=== PATIENT | male | born 1930 | race Caucasian/White ===

== ENCOUNTER 2018-01-16 15:50 | Inpatient (IN) | payer MEDICARE, OTHER, MEDICAID ==
[2018-01-16 17:31] LABS: ADD MAN DIFF? NO
[2018-01-16 17:34] LABS: WHITE BLOOD COUNT 4.2 10^3/ul (4.8-10.8)
[2018-01-16 17:34] LABS: BASOPHILS % 0.7 % (0.0-2.0); EOSINOPHILS # 0.1 10^3/ul (0.0-0.5); EOSINOPHILS % 2.2 % (0.0-7.0); HEMATOCRIT 41.5 % (42.0-52.0); HEMOGLOBIN 13.9 g/dl (14.0-18.0); LYMPHOCYTES # 1.2 10^3/ul (0.8-2.9); LYMPHOCYTES % 27.8 % (15.0-51.0); MEAN CORPUSCULAR HEMOGLOBIN 28.6 pg (29.0-33.0); MEAN CORPUSCULAR HGB CONC 33.5 g/dl (32.0-37.0); MEAN CORPUSCULAR VOLUME 85.4 fl (82.0-101.0); MEAN PLATELET VOLUME 8.5 fl (7.4-10.4); MONOCYTE # 0.3 10^3/ul (0.3-0.9); MONOCYTES % 7.2 % (0.0-11.0); NEUTROPHIL # 2.6 10^3/ul (1.6-7.5); NEUTROPHILS % 61.6 % (39.0-77.0); PLATELET COUNT 171 10^3/UL (140-415); RED BLOOD COUNT 4.86 10^6/ul (4.70-6.10); RED CELL DISTRIBUTION WIDTH 13.9 % (11.5-14.5)
[2018-01-16 18:00] LABS: ALANINE AMINOTRANSFERASE 35 IU/L (13-69); ALBUMIN 4.4 g/dl (3.3-4.9); ALBUMIN/GLOBULIN RATIO 1.41; ALKALINE PHOSPHATASE 92 IU/L (42-121); ANION GAP 14 (8-16); ASPARTATE AMINO TRANSFERASE 27 IU/L (15-46); BILIRUBIN,INDIRECT 0.6 mg/dl (0-1.1); BILIRUBIN,TOTAL 0.6 mg/dl (0.2-1.3); BLOOD UREA NITROGEN 25 mg/dl (7-20); CALCIUM 9.1 mg/dl (8.4-10.2); CARBON DIOXIDE 25 mmol/L (21-31); CHLORIDE 105 mmol/L (97-110); CREATININE 1.04 mg/dl (0.61-1.24); GLUCOSE 98 mg/dl (70-220); LIPASE 47 U/L (23-300); POTASSIUM 4.3 mmol/L (3.5-5.1); SODIUM 140 mmol/L (135-144); TOTAL PROTEIN 7.5 g/dl (6.1-8.1)
[2018-01-16 18:15] LABS: ADD UMIC YES; UR ASCORBIC ACID NEGATIVE (NEGATIVE); UR BACTERIA FEW /HPF (NONE SEEN); UR BILIRUBIN (Dip) NEGATIVE (NEGATIVE); UR BLOOD (Dip) 1+ mg/dL (NEGATIVE); UR CLARITY CLEAR (CLEAR); UR COLOR YELLOW (YELLOW); UR GLUCOSE (Dip) NEGATIVE (NEGATIVE); UR KETONES (Dip) 2+ mg/dL (NEGATIVE); UR LEUKOCYTE ESTERASE (Dip) NEGATIVE Leu/ul (NEGATIVE); UR MUCUS MODERATE /HPF (NONE SEEN); UR NITRITE (Dip) NEGATIVE (NEGATIVE); UR RBC 4 /HPF (0-5); UR SPECIFIC GRAVITY (Dip) 1.025 (1.003-1.030); UR TOTAL PROTEIN (Dip) 1+ mg/dl (NEGATIVE); UR UROBILINOGEN (Dip) NEGATIVE (NEGATIVE); UR WBC 3 /HPF (0-5)
[2018-01-16] MEDS: SOD CHLORIDE 0.9% 100 ML (18:53)
[2018-01-16] MEDS: IOHEXOL 300MG/ML 150 ML BTL (19:23)
[2018-01-16] MEDS: SOD CHLORIDE 0.9% 1,000 ML IV (20:25)
[2018-01-16] MEDS ORDERED: ONDANSETRON 4 MG INJ IV (20:30)
[2018-01-16] MEDS ORDERED: ACETAMINOPHEN 325 MG TAB PO ×2 (20:30→22:00)
[2018-01-16] MEDS ORDERED: NACL 0.9% 3 ML SYG IV (22:00)
[2018-01-16] MEDS ORDERED: MAGNESIUM HYDROXIDE 30ML CUP PO (22:00)
[2018-01-16] MEDS ORDERED: BISACODYL (EC) 5 MG TAB PO (22:00)
[2018-01-16] MEDS ORDERED: DOCUSATE SODIUM 100 MG CAP PO (22:00)
[2018-01-16] MEDS ORDERED: ACETAMINOPHEN 650 MG SUPP PR (22:00)
[2018-01-16] MEDS: DEXTROSE 5%-0.45% NACL 1,000 ML IV (23:31)
[2018-01-17] MEDS: PANTOPRAZOLE 40 MG INJ IV (06:18)
[2018-01-17 08:36] LABS: HEMOGLOBIN A1C 5.7 % (0-5.9)
[2018-01-17] MEDS: GABAPENTIN 100 MG CAP PO (08:52)
[2018-01-17] MEDS: EZETIMIBE 10 MG TAB PO (08:53)
[2018-01-17] MEDS: SUCRALFATE 1 GM TAB PO ×4 (08:53→20:31)
[2018-01-17] MEDS: LOSARTAN 50 MG TAB PO ×2 (08:54→20:32)
[2018-01-17] MEDS: DEXTROSE 5%-0.45% NACL 1,000 ML IV ×2 (12:02→13:22)
[2018-01-17] MEDS: ROPINIROLE 0.25 MG TAB PO (20:31)
[2018-01-18] MEDS: DEXTROSE 5%-0.45% NACL 1,000 ML IV ×3 (02:20→16:38)
[2018-01-18] MEDS: PANTOPRAZOLE 40 MG INJ IV (06:00)
[2018-01-18] MEDS: SUCRALFATE 1 GM TAB PO ×4 (08:00→20:32)
[2018-01-18] MEDS: GABAPENTIN 100 MG CAP PO (08:08)
[2018-01-18] MEDS: LOSARTAN 50 MG TAB PO ×2 (08:08→20:32)
[2018-01-18] MEDS: EZETIMIBE 10 MG TAB PO (08:09)
[2018-01-18] MEDS: PROPOFOL 20 ML (18:13)
[2018-01-18] MEDS: QUETIAPINE 25 MG TAB PO (20:32)
[2018-01-18] MEDS: ROPINIROLE 0.25 MG TAB PO (20:32)
[2018-01-18] MEDS: ONDANSETRON 4 MG INJ IV (20:36)
[2018-01-19] MEDS: DEXTROSE 5%-0.45% NACL 1,000 ML IV ×2 (01:32→18:34)
[2018-01-19] MEDS: PANTOPRAZOLE 40 MG INJ IV (06:09)
[2018-01-19] MEDS: LOSARTAN 50 MG TAB PO ×2 (08:39→20:39)
[2018-01-19] MEDS: GABAPENTIN 100 MG CAP PO (08:39)
[2018-01-19] MEDS: SUCRALFATE 1 GM TAB PO ×4 (08:39→20:38)
[2018-01-19] MEDS: EZETIMIBE 10 MG TAB PO (08:39)
[2018-01-19] MEDS: ROPINIROLE 0.25 MG TAB PO (20:38)
[2018-01-19] MEDS: QUETIAPINE 25 MG TAB PO (20:38)
[2018-01-20] MEDS: PANTOPRAZOLE 40 MG INJ IV (05:54)
[2018-01-20] MEDS: LOSARTAN 50 MG TAB PO ×2 (08:16→21:05)
[2018-01-20] MEDS: EZETIMIBE 10 MG TAB PO (08:16)
[2018-01-20] MEDS: GABAPENTIN 100 MG CAP PO (08:16)
[2018-01-20] MEDS: SUCRALFATE 1 GM TAB PO ×4 (08:16→21:05)
[2018-01-20] MEDS: ROPINIROLE 0.25 MG TAB PO (21:05)
[2018-01-20] MEDS: QUETIAPINE 25 MG TAB PO (21:05)
[2018-01-21] MEDS: PANTOPRAZOLE 40 MG INJ IV (05:53)
[2018-01-21] MEDS: LOSARTAN 50 MG TAB PO ×2 (08:25→21:12)
[2018-01-21] MEDS: EZETIMIBE 10 MG TAB PO (08:25)
[2018-01-21] MEDS: SUCRALFATE 1 GM TAB PO ×4 (08:25→21:13)
[2018-01-21] MEDS: GABAPENTIN 100 MG CAP PO (08:25)
[2018-01-21] MEDS: QUETIAPINE 25 MG TAB PO (21:13)
[2018-01-21] MEDS: ROPINIROLE 0.25 MG TAB PO (21:13)
[2018-01-22] MEDS: PANTOPRAZOLE 40 MG INJ IV (05:54)
[2018-01-22] MEDS: EZETIMIBE 10 MG TAB PO (08:02)
[2018-01-22] MEDS: GABAPENTIN 100 MG CAP PO (08:03)
[2018-01-22] MEDS: SUCRALFATE 1 GM TAB PO ×2 (08:03→11:56)
[2018-01-22] MEDS: LOSARTAN 50 MG TAB PO (08:03)
== END 2018-01-22 13:45 | disposition home or self-care (01) | DRG 392 ==
LOC: MS2 01-20 21:10 → E/R 15:50 → MS2 20:22
PROC: 0DB68ZX Excision of Stomach, Via Natural or Artificial Opening Endoscopic, Diagnostic (ICD-10-PCS; principal; 2018-01-18 16:50)
DX: K29.00 Acute gastritis without bleeding (principal); K29.40 Chronic atrophic gastritis without bleeding; K29.80 Duodenitis without bleeding; F41.9 Anxiety disorder, unspecified; F32.9 Major depressive disorder, single episode, unspecified; I12.9 Hypertensive chronic kidney disease with stage 1 through stage 4 chronic kidney disease, or unspecified chronic kidney disease; N18.9 Chronic kidney disease, unspecified; R13.10 Dysphagia, unspecified; G20 Parkinson's disease; K44.9 Diaphragmatic hernia without obstruction or gangrene; K31.7 Polyp of stomach and duodenum; D64.9 Anemia, unspecified
CPT/HCPCS: 36415; 70491; 80053; 81001; 83036; 83690; 84443; 85025; 88305; 92526; 92610; 97161; 99285-25

== ENCOUNTER 2018-08-28 09:49 | Emergency (ER) | payer MEDICARE, OTHER ==
[2018-08-28] MEDS: BELLADONNA/PHENOBARBITAL TAB PO (11:42)
[2018-08-28] MEDS: ONDANSETRON 4 MG INJ IV (11:42)
[2018-08-28] MEDS: SOD CHLORIDE 0.9% 500 ML IV (11:42)
[2018-08-28] MEDS: KETOROLAC 15 MG INJ IV (11:42)
[2018-08-28] MEDS: LIDOCAINE/MYLANTA 40 ML BTL PO (11:42)
[2018-08-28 12:00] LABS: ADD MAN DIFF? NO
[2018-08-28 12:13] LABS: WHITE BLOOD COUNT 8.3 10^3/ul (4.8-10.8)
[2018-08-28 12:13] LABS: BASOPHILS % 0.5 % (0.0-2.0); EOSINOPHILS # 0.1 10^3/ul (0.0-0.5); EOSINOPHILS % 0.6 % (0.0-7.0); HEMOGLOBIN 13.5 g/dl (14.0-18.0); LYMPHOCYTES # 0.9 10^3/ul (0.8-2.9); MEAN CORPUSCULAR HEMOGLOBIN 28.6 pg (29.0-33.0); MEAN CORPUSCULAR HGB CONC 32.9 g/dl (32.0-37.0); MEAN CORPUSCULAR VOLUME 86.9 fl (82.0-101.0); MEAN PLATELET VOLUME 8.9 fl (7.4-10.4); MONOCYTE # 0.5 10^3/ul (0.3-0.9); MONOCYTES % 6.5 % (0.0-11.0); NEUTROPHIL # 6.7 10^3/ul (1.6-7.5); NEUTROPHILS % 80.8 % (39.0-77.0); PLATELET COUNT 186 10^3/UL (140-415); RED BLOOD COUNT 4.72 10^6/ul (4.70-6.10); RED CELL DISTRIBUTION WIDTH 13.5 % (11.5-14.5)
[2018-08-28 12:31] LABS: ALANINE AMINOTRANSFERASE 14 IU/L (13-69); ALBUMIN/GLOBULIN RATIO 1.25; ALKALINE PHOSPHATASE 85 IU/L (42-121); ANION GAP 11 (5-13); ASPARTATE AMINO TRANSFERASE 27 IU/L (15-46); BILIRUBIN,INDIRECT 0.5 mg/dl (0-1.1); BILIRUBIN,TOTAL 0.5 mg/dl (0.2-1.3); BLOOD UREA NITROGEN 33 mg/dl (7-20); CARBON DIOXIDE 27 mmol/L (21-31); CHLORIDE 100 mmol/L (97-110); CREATININE 1.19 mg/dl (0.61-1.24); GLUCOSE 135 mg/dl (70-220); LIPASE 27 U/L (23-300); SODIUM 138 mmol/L (135-144); TOTAL PROTEIN 7.2 g/dl (6.1-8.1)
[2018-08-28 12:42] LABS: TROPONIN-I < 0.012 ng/ml (0.000-0.120)
[2018-08-28] MEDS: LORAZEPAM 0.5 MG TAB PO (12:45)
== END 2018-08-28 13:24 | disposition home or self-care (01) ==
LOC: E/R 09:49
DX: G44.209 Tension-type headache, unspecified, not intractable (principal); E86.0 Dehydration; G20 Parkinson's disease; N18.9 Chronic kidney disease, unspecified; I12.9 Hypertensive chronic kidney disease with stage 1 through stage 4 chronic kidney disease, or unspecified chronic kidney disease; G30.9 Alzheimer's disease, unspecified
CPT/HCPCS: 36415; 70450; 80053; 83690; 84484; 85025; 93005; 96374; 96375; 99285-25

== ENCOUNTER 2018-10-06 20:23 | Inpatient (IN) | payer MEDICARE, OTHER ==
[2018-10-06 21:33] LABS: ADD MAN DIFF? NO
[2018-10-06 21:36] LABS: WHITE BLOOD COUNT 10.7 10^3/ul (4.8-10.8)
[2018-10-06 21:36] LABS: BASOPHILS % 0.3 % (0.0-2.0); HEMATOCRIT 41.6 % (42.0-52.0); LYMPHOCYTES # 0.7 10^3/ul (0.8-2.9); LYMPHOCYTES % 6.2 % (15.0-51.0); MEAN CORPUSCULAR HEMOGLOBIN 28.7 pg (29.0-33.0); MEAN CORPUSCULAR HGB CONC 33.7 g/dl (32.0-37.0); MEAN CORPUSCULAR VOLUME 85.4 fl (82.0-101.0); MEAN PLATELET VOLUME 8.7 fl (7.4-10.4); MONOCYTE # 0.3 10^3/ul (0.3-0.9); MONOCYTES % 3.2 % (0.0-11.0); NEUTROPHIL # 9.6 10^3/ul (1.6-7.5); NEUTROPHILS % 89.8 % (39.0-77.0); PLATELET COUNT 248 10^3/UL (140-415); RED BLOOD COUNT 4.87 10^6/ul (4.70-6.10); RED CELL DISTRIBUTION WIDTH 13.2 % (11.5-14.5)
[2018-10-06] MEDS: ONDANSETRON 4 MG INJ IV ×2 (21:42→23:38)
[2018-10-06] MEDS: SOD CHLORIDE 0.9% 1,000 ML IV (21:42)
[2018-10-06 21:43] LABS: ALANINE AMINOTRANSFERASE 33 IU/L (13-69); ALBUMIN 4.9 g/dl (3.3-4.9); ALBUMIN/GLOBULIN RATIO 1.28; ALKALINE PHOSPHATASE 137 IU/L (42-121); ANION GAP 16 (5-13); ASPARTATE AMINO TRANSFERASE 24 IU/L (15-46); BILIRUBIN,INDIRECT 0.5 mg/dl (0-1.1); BILIRUBIN,TOTAL 0.5 mg/dl (0.2-1.3); BLOOD UREA NITROGEN 26 mg/dl (7-20); CALCIUM 9.5 mg/dl (8.4-10.2); CARBON DIOXIDE 24 mmol/L (21-31); CHLORIDE 102 mmol/L (97-110); CREATININE 1.16 mg/dl (0.61-1.24); GLUCOSE 172 mg/dl (70-220); LIPASE 52 U/L (23-300); POTASSIUM 3.6 mmol/L (3.5-5.1); SODIUM 142 mmol/L (135-144); TOTAL PROTEIN 8.7 g/dl (6.1-8.1)
[2018-10-06] MEDS: morphine 4 MG/ML VIAL IV ×2 (21:43→23:39)
[2018-10-06 21:54] LABS: TROPONIN-I < 0.012 ng/ml (0.000-0.120)
[2018-10-06 21:56] LABS: INR 0.97
[2018-10-06 21:57] LABS: PARTIAL THROMBOPLASTIN TIME 27.8 Sec (23.0-35.0)
[2018-10-06] MEDS: IOHEXOL 300MG/ML 150 ML BTL (23:27)
[2018-10-06] MEDS: SOD CHLORIDE 0.9% 100 ML (23:27)
[2018-10-07] MEDS ORDERED: ONDANSETRON 4 MG INJ IV (00:30)
[2018-10-07] MEDS ORDERED: NACL 0.9% 3 ML SYG IV (02:00)
[2018-10-07] MEDS: hydrALAzine 20 MG INJ IV (02:33)
[2018-10-07] MEDS: DEXTROSE 5%-0.45% NACL 1,000 ML IV ×2 (02:33→14:30)
[2018-10-07] MEDS: PIPER-TAZO 3.375 GM IV (PMX) 100 ML IVPB ×3 (05:42→22:24)
[2018-10-07] MEDS: FAMOTIDINE 20 MG INJ IV (08:11)
[2018-10-07] MEDS: morphine 2 MG INJ IV (08:11)
[2018-10-07 08:50] LABS: ADD MAN DIFF? NO
[2018-10-07 08:54] LABS: ABNORMAL IP MESSAGE 1; BASOPHILS % 0.1 % (0.0-2.0); HEMATOCRIT 43.2 % (42.0-52.0); HEMOGLOBIN 14.7 g/dl (14.0-18.0); LYMPHOCYTES # 0.5 10^3/ul (0.8-2.9); LYMPHOCYTES % 3.1 % (15.0-51.0); MEAN CORPUSCULAR HEMOGLOBIN 28.9 pg (29.0-33.0); MEAN PLATELET VOLUME 8.9 fl (7.4-10.4); MONOCYTES % 5.7 % (0.0-11.0); NEUTROPHILS % 90.7 % (39.0-77.0); PLATELET COUNT 243 10^3/UL (140-415); POSITIVE DIFF @See below; RED BLOOD COUNT 5.08 10^6/ul (4.70-6.10); RED CELL DISTRIBUTION WIDTH 13.6 % (11.5-14.5)
[2018-10-07 08:54] LABS: WHITE BLOOD COUNT 16.6 10^3/ul (4.8-10.8)
[2018-10-07 09:51] LABS: ALANINE AMINOTRANSFERASE 33 IU/L (13-69); ALBUMIN 4.5 g/dl (3.3-4.9); ALBUMIN/GLOBULIN RATIO 1.25; ALKALINE PHOSPHATASE 122 IU/L (42-121); ANION GAP 13 (5-13); ASPARTATE AMINO TRANSFERASE 36 IU/L (15-46); BILIRUBIN,INDIRECT 0.7 mg/dl (0-1.1); BILIRUBIN,TOTAL 0.7 mg/dl (0.2-1.3); BLOOD UREA NITROGEN 19 mg/dl (7-20); CALCIUM 8.9 mg/dl (8.4-10.2); CARBON DIOXIDE 24 mmol/L (21-31); CHLORIDE 103 mmol/L (97-110); CHOL/HDL RATIO 2.7 RATIO; CHOLESTEROL 115 mg/dl (100-200); CREATININE 0.92 mg/dl (0.61-1.24); GLUCOSE 177 mg/dl (70-220); HDL CHOLESTEROL 42 mg/dl (31-75); LDL CHOLESTEROL,CALCULATED 65 mg/dl; POTASSIUM 3.5 mmol/L (3.5-5.1); SODIUM 140 mmol/L (135-144); TOTAL PROTEIN 8.1 g/dl (6.1-8.1); TRIGLYCERIDES 39 mg/dl (0-149)
[2018-10-07] MEDS ORDERED: LIDOCAINE/MYLANTA 40 ML BTL PO (10:00)
[2018-10-07] MEDS: LIDOCAINE/MYLANTA 40 ML BTL PO (11:04)
[2018-10-07] MEDS: ACETAMINOPHEN 325 MG TAB PO ×2 (15:59→20:30)
[2018-10-07 17:03] LABS: LACTIC ACID 1.2 mmol/L (0.5-2.0)
[2018-10-07] MEDS: ONDANSETRON 4 MG INJ IV (20:26)
[2018-10-08] MEDS: DEXTROSE 5%-0.45% NACL 1,000 ML IV ×2 (03:00→12:09)
[2018-10-08] MEDS: PIPER-TAZO 3.375 GM IV (PMX) 100 ML IVPB ×3 (06:58→21:10)
[2018-10-08] MEDS: PANTOPRAZOLE 40 MG INJ IV (06:58)
[2018-10-08 06:59] LABS: ABNORMAL IP MESSAGE 1; ADD MAN DIFF? NO; BASOPHILS % 0.2 % (0.0-2.0); HEMATOCRIT 42.4 % (42.0-52.0); HEMOGLOBIN 14.2 g/dl (14.0-18.0); LYMPHOCYTES # 0.5 10^3/ul (0.8-2.9); LYMPHOCYTES % 3.2 % (15.0-51.0); MEAN CORPUSCULAR HEMOGLOBIN 28.9 pg (29.0-33.0); MEAN CORPUSCULAR HGB CONC 33.5 g/dl (32.0-37.0); MEAN CORPUSCULAR VOLUME 86.4 fl (82.0-101.0); MEAN PLATELET VOLUME 9.4 fl (7.4-10.4); MONOCYTE # 0.6 10^3/ul (0.3-0.9); MONOCYTES % 3.6 % (0.0-11.0); NEUTROPHIL # 15.4 10^3/ul (1.6-7.5); NEUTROPHILS % 91.8 % (39.0-77.0); PLATELET COUNT 173 10^3/UL (140-415); POSITIVE DIFF @See below; RED BLOOD COUNT 4.91 10^6/ul (4.70-6.10); RED CELL DISTRIBUTION WIDTH 13.9 % (11.5-14.5)
[2018-10-08 06:59] LABS: WHITE BLOOD COUNT 16.8 10^3/ul (4.8-10.8)
[2018-10-08 07:20] LABS: ANION GAP 12 (5-13); BLOOD UREA NITROGEN 21 mg/dl (7-20); CALCIUM 8.6 mg/dl (8.4-10.2); CARBON DIOXIDE 26 mmol/L (21-31); CHLORIDE 99 mmol/L (97-110); CREATININE 1.11 mg/dl (0.61-1.24); GLUCOSE 154 mg/dl (70-220); MAGNESIUM 1.8 mg/dl (1.7-2.5); PHOSPHORUS 2.8 mg/dl (2.5-4.9); POTASSIUM 3.6 mmol/L (3.5-5.1); SODIUM 137 mmol/L (135-144)
[2018-10-08] MEDS: ACETAMINOPHEN 1000MG/100ML IV 100 ML IVPB (08:03)
[2018-10-08] MEDS: morphine 2 MG INJ IV (09:24)
[2018-10-08] MEDS: HYOSCYAMINE 0.125 MG SUBL TAB PO ×2 (16:54→21:10)
[2018-10-08] MEDS: ROPINIROLE 0.25 MG TAB PO (21:30)
[2018-10-08] MEDS: ATORVASTATIN 10 MG TAB PO (21:46)
[2018-10-09] MEDS ORDERED: VANCOMYCIN IV PER PHARMACY XX (00:30)
[2018-10-09] MEDS: NAPROXEN 500 MG TAB PO (01:17)
[2018-10-09] MEDS: VANCOMYCIN HCL 1.5 GM in SOD CHLORIDE 0.9% 250 ML IVPB (01:17)
[2018-10-09 01:26] LABS: LACTIC ACID 1.1 mmol/L (0.5-2.0)
[2018-10-09] MEDS: DEXTROSE 5%-0.45% NACL 1,000 ML IV ×3 (03:06→23:18)
[2018-10-09] MEDS: ROPINIROLE 0.25 MG TAB PO ×2 (03:06→21:56)
[2018-10-09] MEDS: ONDANSETRON 4 MG INJ IV ×3 (04:29→14:52)
[2018-10-09] MEDS: PANTOPRAZOLE 40 MG INJ IV (05:00)
[2018-10-09] MEDS: PIPER-TAZO 3.375 GM IV (PMX) 100 ML IVPB ×3 (05:02→21:52)
[2018-10-09] MEDS: HYOSCYAMINE 0.125 MG SUBL TAB PO ×3 (05:02→21:52)
[2018-10-09 06:55] LABS: ADD MAN DIFF? NO
[2018-10-09 06:58] LABS: BASOPHILS % 0.2 % (0.0-2.0); EOSINOPHILS % 0.1 % (0.0-7.0); HEMATOCRIT 39.8 % (42.0-52.0); HEMOGLOBIN 13.3 g/dl (14.0-18.0); LYMPHOCYTES # 0.8 10^3/ul (0.8-2.9); LYMPHOCYTES % 6.8 % (15.0-51.0); MEAN CORPUSCULAR HEMOGLOBIN 28.9 pg (29.0-33.0); MEAN CORPUSCULAR HGB CONC 33.4 g/dl (32.0-37.0); MEAN CORPUSCULAR VOLUME 86.5 fl (82.0-101.0); MEAN PLATELET VOLUME 9.7 fl (7.4-10.4); MONOCYTE # 0.6 10^3/ul (0.3-0.9); MONOCYTES % 4.4 % (0.0-11.0); NEUTROPHIL # 10.9 10^3/ul (1.6-7.5); NEUTROPHILS % 87.5 % (39.0-77.0); PLATELET COUNT 116 10^3/UL (140-415); RED CELL DISTRIBUTION WIDTH 14.1 % (11.5-14.5)
[2018-10-09 06:58] LABS: WHITE BLOOD COUNT 12.4 10^3/ul (4.8-10.8)
[2018-10-09 07:34] LABS: ALANINE AMINOTRANSFERASE 21 IU/L (13-69); ALBUMIN 3.3 g/dl (3.3-4.9); ALBUMIN/GLOBULIN RATIO 1.03; ALKALINE PHOSPHATASE 96 IU/L (42-121); ANION GAP 8 (5-13); ASPARTATE AMINO TRANSFERASE 26 IU/L (15-46); BILIRUBIN,INDIRECT 0.5 mg/dl (0-1.1); BILIRUBIN,TOTAL 0.5 mg/dl (0.2-1.3); BLOOD UREA NITROGEN 26 mg/dl (7-20); CALCIUM 8.5 mg/dl (8.4-10.2); CARBON DIOXIDE 29 mmol/L (21-31); CHLORIDE 101 mmol/L (97-110); GLUCOSE 135 mg/dl (70-220); POTASSIUM 3.7 mmol/L (3.5-5.1); SODIUM 138 mmol/L (135-144); TOTAL PROTEIN 6.5 g/dl (6.1-8.1)
[2018-10-09] MEDS: GABAPENTIN 100 MG CAP PO (08:45)
[2018-10-09] MEDS: LOSARTAN 50 MG TAB PO (08:46)
[2018-10-09] MEDS: EZETIMIBE 10 MG TAB PO (10:26)
[2018-10-10] MEDS ORDERED: VANCOMYCIN 1 GM 250 ML IVPB (01:00)
[2018-10-10] MEDS: PIPER-TAZO 3.375 GM IV (PMX) 100 ML IVPB ×3 (06:03→21:03)
[2018-10-10] MEDS: PANTOPRAZOLE 40 MG INJ IV (06:03)
[2018-10-10] MEDS: HYOSCYAMINE 0.125 MG SUBL TAB PO ×3 (06:03→21:03)
[2018-10-10 08:50] LABS: ADD MAN DIFF? NO
[2018-10-10 08:55] LABS: WHITE BLOOD COUNT 7.8 10^3/ul (4.8-10.8)
[2018-10-10 08:55] LABS: BASOPHILS % 0.3 % (0.0-2.0); EOSINOPHILS # 0.1 10^3/ul (0.0-0.5); EOSINOPHILS % 0.6 % (0.0-7.0); HEMATOCRIT 35.4 % (42.0-52.0); HEMOGLOBIN 11.9 g/dl (14.0-18.0); LYMPHOCYTES # 0.8 10^3/ul (0.8-2.9); LYMPHOCYTES % 9.8 % (15.0-51.0); MEAN CORPUSCULAR HEMOGLOBIN 28.5 pg (29.0-33.0); MEAN CORPUSCULAR HGB CONC 33.6 g/dl (32.0-37.0); MEAN CORPUSCULAR VOLUME 84.9 fl (82.0-101.0); MONOCYTE # 0.5 10^3/ul (0.3-0.9); MONOCYTES % 6.9 % (0.0-11.0); NEUTROPHIL # 6.4 10^3/ul (1.6-7.5); NEUTROPHILS % 81.9 % (39.0-77.0); PLATELET COUNT 119 10^3/UL (140-415); RED BLOOD COUNT 4.17 10^6/ul (4.70-6.10); RED CELL DISTRIBUTION WIDTH 13.9 % (11.5-14.5)
[2018-10-10] MEDS: DEXTROSE 5%-0.45% NACL 1,000 ML IV ×2 (09:00→17:24)
[2018-10-10] MEDS: GABAPENTIN 100 MG CAP PO (09:00)
[2018-10-10 09:21] LABS: PHOSPHORUS 2.2 mg/dl (2.5-4.9)
[2018-10-10 09:21] LABS: MAGNESIUM 1.9 mg/dl (1.7-2.5)
[2018-10-10 09:22] LABS: ALANINE AMINOTRANSFERASE 15 IU/L (13-69); ALBUMIN 2.9 g/dl (3.3-4.9); ALKALINE PHOSPHATASE 87 IU/L (42-121); ANION GAP 6 (5-13); ASPARTATE AMINO TRANSFERASE 21 IU/L (15-46); BILIRUBIN,INDIRECT 0.4 mg/dl (0-1.1); BILIRUBIN,TOTAL 0.4 mg/dl (0.2-1.3); BLOOD UREA NITROGEN 16 mg/dl (7-20); CALCIUM 7.9 mg/dl (8.4-10.2); CARBON DIOXIDE 28 mmol/L (21-31); CHLORIDE 104 mmol/L (97-110); CREATININE 1.09 mg/dl (0.61-1.24); GLUCOSE 123 mg/dl (70-220); POTASSIUM 3.3 mmol/L (3.5-5.1); SODIUM 138 mmol/L (135-144); TOTAL PROTEIN 5.8 g/dl (6.1-8.1)
[2018-10-10 12:14] LABS: ADD UMIC YES; UR ASCORBIC ACID NEGATIVE (NEGATIVE); UR BILIRUBIN (Dip) NEGATIVE (NEGATIVE); UR BLOOD (Dip) 2+ mg/dL (NEGATIVE); UR CLARITY CLEAR (CLEAR); UR COLOR STRAW (YELLOW); UR GLUCOSE (Dip) 1+ mg/dL (NEGATIVE); UR KETONES (Dip) NEGATIVE (NEGATIVE); UR LEUKOCYTE ESTERASE (Dip) NEGATIVE Leu/ul (NEGATIVE); UR NITRITE (Dip) NEGATIVE (NEGATIVE); UR RBC 1 /HPF (0-5); UR SPECIFIC GRAVITY (Dip) 1.008 (1.003-1.030); UR TOTAL PROTEIN (Dip) NEGATIVE (NEGATIVE); UR UROBILINOGEN (Dip) NEGATIVE (NEGATIVE); UR WBC 1 /HPF (0-5)
[2018-10-10 12:41] LABS: PROCALCITONIN 0.27 ng/mL (<0.10)
[2018-10-10] MEDS: DOCUSATE SODIUM 100 MG CAP PO ×2 (15:37→20:58)
[2018-10-10] MEDS: POLYETHYLENE GLYCOL 17 GM PACKET NGT (15:38)
[2018-10-10] MEDS: SENNA/DOCUSATE NA (8.6MG/50MG) TAB PO (17:23)
[2018-10-10] MEDS: POTASSIUM CHLORIDE 20 MEQ POWDER FOR ORAL SOLN PO (17:23)
[2018-10-10] MEDS: ROPINIROLE 0.25 MG TAB PO (20:59)
[2018-10-10] MEDS: ACETAMINOPHEN 325 MG TAB PO (21:02)
[2018-10-10] MEDS: ZOLPIDEM 5 MG TAB PO (21:03)
[2018-10-11 01:05] LABS: ADD UMIC YES; UR ASCORBIC ACID NEGATIVE (NEGATIVE); UR BILIRUBIN (Dip) NEGATIVE (NEGATIVE); UR BLOOD (Dip) 2+ mg/dL (NEGATIVE); UR CLARITY CLEAR (CLEAR); UR COLOR YELLOW (YELLOW); UR GLUCOSE (Dip) NEGATIVE (NEGATIVE); UR KETONES (Dip) NEGATIVE (NEGATIVE); UR LEUKOCYTE ESTERASE (Dip) NEGATIVE Leu/ul (NEGATIVE); UR NITRITE (Dip) NEGATIVE (NEGATIVE); UR RBC 2 /HPF (0-5); UR SPECIFIC GRAVITY (Dip) 1.012 (1.003-1.030); UR TOTAL PROTEIN (Dip) NEGATIVE (NEGATIVE); UR UROBILINOGEN (Dip) NEGATIVE (NEGATIVE); UR WBC 0 /HPF (0-5)
[2018-10-11] MEDS: DEXTROSE 5%-0.45% NACL 1,000 ML IV ×2 (03:09→05:34)
[2018-10-11] MEDS: ACETAMINOPHEN 325 MG TAB PO ×2 (05:32→13:56)
[2018-10-11] MEDS: PANTOPRAZOLE 40 MG INJ IV (05:33)
[2018-10-11] MEDS: PIPER-TAZO 3.375 GM IV (PMX) 100 ML IVPB ×2 (05:33→14:00)
[2018-10-11] MEDS: HYOSCYAMINE 0.125 MG SUBL TAB PO ×2 (05:33→13:59)
[2018-10-11 06:48] LABS: ADD MAN DIFF? NO
[2018-10-11 06:58] LABS: BASOPHILS % 0.8 % (0.0-2.0); EOSINOPHILS # 0.2 10^3/ul (0.0-0.5); EOSINOPHILS % 4.4 % (0.0-7.0); HEMATOCRIT 36.8 % (42.0-52.0); HEMOGLOBIN 12.3 g/dl (14.0-18.0); LYMPHOCYTES # 0.7 10^3/ul (0.8-2.9); LYMPHOCYTES % 12.8 % (15.0-51.0); MEAN CORPUSCULAR HEMOGLOBIN 28.7 pg (29.0-33.0); MEAN CORPUSCULAR HGB CONC 33.4 g/dl (32.0-37.0); MEAN CORPUSCULAR VOLUME 85.8 fl (82.0-101.0); MEAN PLATELET VOLUME 9.4 fl (7.4-10.4); MONOCYTE # 0.6 10^3/ul (0.3-0.9); MONOCYTES % 11.2 % (0.0-11.0); NEUTROPHIL # 3.6 10^3/ul (1.6-7.5); NEUTROPHILS % 70.4 % (39.0-77.0); PLATELET COUNT 116 10^3/UL (140-415); POSITIVE DIFF @See below; RED BLOOD COUNT 4.29 10^6/ul (4.70-6.10); RED CELL DISTRIBUTION WIDTH 14.1 % (11.5-14.5)
[2018-10-11 06:58] LABS: WHITE BLOOD COUNT 5.2 10^3/ul (4.8-10.8)
[2018-10-11 07:33] LABS: LACTIC ACID 0.9 mmol/L (0.5-2.0)
[2018-10-11 07:37] LABS: LIPASE 61 U/L (23-300); MAGNESIUM 1.9 mg/dl (1.7-2.5)
[2018-10-11 07:37] LABS: PHOSPHORUS 2.5 mg/dl (2.5-4.9)
[2018-10-11 07:46] LABS: ALANINE AMINOTRANSFERASE 54 IU/L (13-69); ALBUMIN/GLOBULIN RATIO 0.96; ALKALINE PHOSPHATASE 140 IU/L (42-121); ANION GAP 4 (5-13); ASPARTATE AMINO TRANSFERASE 74 IU/L (15-46); BILIRUBIN,INDIRECT 0.4 mg/dl (0-1.1); BILIRUBIN,TOTAL 0.4 mg/dl (0.2-1.3); BLOOD UREA NITROGEN 10 mg/dl (7-20); CALCIUM 8.3 mg/dl (8.4-10.2); CARBON DIOXIDE 31 mmol/L (21-31); CHLORIDE 106 mmol/L (97-110); CREATININE 0.99 mg/dl (0.61-1.24); GLUCOSE 106 mg/dl (70-220); POTASSIUM 3.4 mmol/L (3.5-5.1); SODIUM 141 mmol/L (135-144); TOTAL PROTEIN 6.1 g/dl (6.1-8.1)
[2018-10-11] MEDS: ENOXAPARIN 30 MG/0.3 ML SYG SC (08:31)
[2018-10-11] MEDS: DOCUSATE SODIUM 100 MG CAP PO (08:38)
[2018-10-11] MEDS: POLYETHYLENE GLYCOL 17 GM PACKET NGT (08:38)
[2018-10-11] MEDS: LOSARTAN 50 MG TAB PO (08:38)
[2018-10-11] MEDS: GABAPENTIN 100 MG CAP PO (08:38)
[2018-10-11] MEDS: ONDANSETRON 4 MG INJ IV (08:39)
[2018-10-11] MEDS ORDERED: GUAIFENESIN/DM 5ML CUP PO (09:30)
[2018-10-11] MEDS: POTASSIUM CHLORIDE (SR) 20 MEQ TAB PO ×2 (09:57→12:41)
[2018-10-11] MEDS: POLYETHYLENE GLYCOL 17 GM PACKET PO (12:30)
[2018-10-11] MEDS: POTASSIUM CHLORIDE 100 ML IVPB (13:10)
[2018-10-11] MEDS ORDERED: EZETIMIBE 10 MG TAB PO (21:00)
[2018-10-12] MEDS ORDERED: PANTOPRAZOLE (EC) 40 MG TAB PO (06:00)
[2018-10-12] MEDS ORDERED: ATORVASTATIN 10 MG TAB PO (21:00)
== END 2018-10-11 16:15 | disposition home or self-care (01) | DRG 872 ==
LOC: E/R 20:23 → TEL 10-07 00:24 → 5EC 10-08 22:11
DX: A41.9 Sepsis, unspecified organism (principal); J21.9 Acute bronchiolitis, unspecified; K37 Unspecified appendicitis; D69.6 Thrombocytopenia, unspecified; M19.90 Unspecified osteoarthritis, unspecified site; I25.10 Atherosclerotic heart disease of native coronary artery without angina pectoris; E66.9 Obesity, unspecified; K21.9 Gastro-esophageal reflux disease without esophagitis; N28.9 Disorder of kidney and ureter, unspecified; I10 Essential (primary) hypertension; E78.5 Hyperlipidemia, unspecified; G20 Parkinson's disease; G30.9 Alzheimer's disease, unspecified; F02.80 Dementia in other diseases classified elsewhere, unspecified severity, without behavioral disturbance, psychotic disturbance, mood disturbance, and anxiety; K57.90 Diverticulosis of intestine, part unspecified, without perforation or abscess without bleeding; K44.9 Diaphragmatic hernia without obstruction or gangrene; K29.70 Gastritis, unspecified, without bleeding; K29.80 Duodenitis without bleeding; E87.6 Hypokalemia; D64.9 Anemia, unspecified; Z87.11 Personal history of peptic ulcer disease
CPT/HCPCS: 36415; 71045; 71275; 74176; 75635; 78226; 80048; 80053; 80061; 81001; 83605; 83690; 83735; 84100; 84145; 84484; 85025; 85610; 85730; 87040-91; 87086; 93005; 96374; 96375; 96376; 99285-25; G0378